=== PATIENT | male | born 1995 | race Caucasian/White ===

== ENCOUNTER 2023-01-02 20:56 | Emergency (ER) | payer BC, OTHER ==
[2023-01-02] MEDS ORDERED: Ketorolac 60 MG/2 ML SDV IM ONE (21:18)
[2023-01-02] MEDS ORDERED: Cyclobenzaprine 10 MG Tab PO ONE (21:18)
== END 2023-01-02 22:52 | disposition home or self-care (01) ==
LOC: JD.ED 20:56
DX: M54.16 Radiculopathy, lumbar region (principal); M25.562 Pain in left knee
CPT/HCPCS: 72100; 96372; 99284; A9270; J1885; 99283

== ENCOUNTER 2023-06-18 06:01 | Emergency (ER) | payer BC, OTHER | END 2023-06-18 06:58 | disposition home or self-care (01) | LOC: JD.ED 06:01 | DX: S46.002A Unspecified injury of muscle(s) and tendon(s) of the rotator cuff of left shoulder, initial encounter (principal); X50.0XXA Overexertion from strenuous movement or load, initial encounter; Y92.69 Other specified industrial and construction area as the place of occurrence of the external cause | CPT/HCPCS: 99283 ==